=== PATIENT | male | born 1965 ===

== ENCOUNTER → 2018-08-25 17:17 | Outpatient (CLI) | payer MEDICARE ==
[2018-08-25 18:48] LABS: BASOPHILS 0.7 % (0-2); EOSINOPHILS 5.8 % (0-7); HEMATOCRIT 42.6 % (42.0-54.0); HEMOGLOBIN 14.1 g/dL (13.5-17.5); IMMATURE GRANULOCYTES 0.2 % (0-5); LYMPHOCYTES 26.7 % (15-50); MCH 30.3 pg (26.0-34.0); MCHC 33.1 g/dL (31.0-37.0); MCV 91.4 fL (80.0-100.0); MEAN PLATELET VOLUME 9.9 fL (7.4-10.4); MONOCYTES 11.8 % (2-11); NEUTROPHILS 54.8 % (40-80); PLATELET COUNT 301 10x3/uL (130-400); RBC 4.66 10x6/uL (4.20-6.10); WBC 5.7 10x3/uL (4.8-10.8)
[2018-08-25 19:25] LABS: ALKALINE PHOSPHATASE 54 U/L (46-116); ALT (SGPT) 39 U/L (10-68); BILIRUBIN - TOTAL 0.36 mg/dL (0.2-1.3); CALC OSMOLALITY 279 mosm/kg (275-300); CALCIUM 8.8 mg/dL (8.5-10.1); CARBON DIOXIDE 28.6 mmol/L (21.0-32.0); CHLORIDE - SERUM 102 mmol/L (98-107); CREATINE KINASE 252 UL (21-232); CREATININE - SERUM 0.9 mg/dL (0.6-1.3); GLUCOSE 76 mg/dL (74-106); POTASSIUM - SERUM 3.8 mmol/L (3.5-5.1); PROTEIN - SERUM 7.4 g/dL (6.4-8.2); SODIUM 140 mmol/L (136-145); UREA NITROGEN 18 mg/dL (7-18); eGFR NON AFRICAN AMERICAN > 90 mL/min (90-120)
[2018-08-25 19:28] LABS: CKMB 2.1 U/L (0.0-3.6)
[2018-08-30 15:12] LABS: EHRLICHIA CHAFF IGG Negative (Neg:<1:64); EHRLICHIA CHAFF IGM Negative (Neg:<1:20); HGE IGG TITER Negative (Neg:<1:64); HGE IGM TITER Negative (Neg:<1:20); RMSF IGM 0.23 index (0.00-0.89)
[2018-09-01 13:16] LABS: F. TULARENSIS - IGG Negative (Negative); F. TULARENSIS - IGM Negative (Negative)
== END | disposition home or self-care (01) ==
LOC: D.LABREF 17:17
PROVIDERS: ATTEND Student in an Organized Health Care Education/Training Program
DX: A77.0 Spotted fever due to Rickettsia rickettsii (principal)